=== PATIENT | female | born 2000 | race African-American/Black ===

== ENCOUNTER 2018-08-30 22:19 | Emergency (ER) | payer MEDICAID ==
[~2018-08-30] VITALS: Ht 157.5 cm; Wt 107.7 kg
[2018-08-30 22:25] VITALS: Ht 157.5 cm; Wt 107.7 kg
[2018-08-31] MEDS ORDERED: KETOROLAC 60 MG INJ IM STA (01:16)
[2018-08-31] MEDS ORDERED: FLUCONAZOLE 150 MG TAB PO ONE (02:00)
[2018-08-31] MEDS ORDERED: CEPH-443 PO (02:48)
[2018-08-31 03:21] VITALS: BP 114/68; PULSE 58; RESP 18
--- NOTE | 2018-08-31 17:49 | ERD ---
ER Documentation Chief Complaint Chief Complaint BREAST PAIN, LOWER BACK PAIN X'S 2 MONTHS HPI History of Present Illness: 18-year-old female who denies a past medical history coming in today with complaint of bilateral breast pain, and lower back pain is been present for 2 months. Patient also reports vaginal itching. Denies abdominal pain, nausea, vomiting, diarrhea, constipation. Patient denies urinary symptoms. At home pharmacological/nonpharmacological treatment for symptoms: Denies Denies social concerns; Denies recent foreign travel ROS All systems reviewed and are negative except as per history of present illness. Medications Home Meds Active Scripts Cephalexin* (Keflex*) 500 Mg Capsule, 500 MG PO BID for 7 Days, CAP Prov:ANDRY GARLAND 08/31/18 Allergies Allergies: Coded Allergies: aripiprazole (Verified Allergy, Unknown, 08/30/18) haloperidol (Verified Allergy, Unknown, 08/30/18) PMhx/Soc Medical and Surgical Hx: pt denies Medical Hx, pt denies Surgical Hx Hx Alcohol Use: No Hx Substance Use: No Hx Tobacco Use: No FmHx Family History: diabetes, coronary disease Physical Exam Vitals Vital Signs Date Temp Pulse Resp B/P (MAP) Pulse Ox O2 O2 Flow FiO2 Time Delivery Rate 08/31/18 98.1 58 18 114/68 98 Room Air 03:21 (83) 08/30/18 97.0 67 18 123/70 96 22:25 (87) Physical Exam Const: No acute distress Head: Atraumatic Eyes: Normal Conjunctiva ENT: Normal External Ears, Nose and Mouth. Neck: Full range of motion. No meningismus. Resp: Clear to auscultation bilaterally Cardio: Regular rate and rhythm, no murmurs Abd: Soft, non tender, non distended. Normal bowel sounds. Obese. Skin: No petechiae or rashes Back: No midline or flank tenderness, no CVA tenderness Ext: No cyanosis, or edema Neur: Awake and alert Psych: Normal Mood and Affect Breast: Dense breasts noted, no signs of mass or skin changes. Vaginal exam deferred, patient did self swab for wet prep Results 24 hrs Laboratory Tests Test 08/31/18 02:15 08/31/18 02:19 Urine Color YELLOW Urine Clarity CLOUDY Urine pH 6.0 Urine Specific [place] 1.026 Urine Ketones NEGATIVE mg/dL Urine Nitrite NEGATIVE mg/dL Urine Bilirubin NEGATIVE mg/dL Urine Urobilinogen NEGATIVE mg/dL Urine Leukocyte Esterase 3+ Edward/ul Urine Microscopic RBC 54 /HPF Urine Microscopic WBC 105 /HPF Urine Squamous Epithelial Cells FEW /HPF Urine Bacteria FEW /HPF Urine Mucus FEW /HPF Urine Hemoglobin 1+ mg/dL Urine Glucose NEGATIVE mg/dL Urine Total Protein NEGATIVE mg/dl POC Beta HCG, Qualitative NEGATIVE Current Medications Medications Dose Sig/Omaira Start Time Status Last (Trade) Ordered Route PRN Stop Time Admin Dose Reason Admin Ketorolac 60 mg ONCE STAT 08/31/18 DC 08/31/18 Tromethamine IM 01:16 02:29 (Toradol) 08/31/18 01:18 Fluconazole 150 mg ONCE ONCE 08/31/18 DC 08/31/18 (Diflucan) PO 02:00 02:35 08/31/18 02:01 Procedures/MDM ED course includes a thorough examination and history. Medications: Ketorolac for bilateral lower back pain, Diflucan for prophylactic vaginal candidiasis Imaging: Labs: Urogenital wet mount, urinalysis Low suspicion for life-threatening medical emergency. Low suspicion for acute abdominal emergency. Low suspicion for infectious process that requires IV/IM antibiotics. Low back pain is likely consistent with obesity causing lumbar strain. Otherwise healthy patient presenting with constellation of symptoms likely representing uncomplicated vaginal itching, fibrocystic breast, urinary tract infectioN as characterized by history, physical exam findings, lab findings. Urogenital wet mount negative.Urinalysis positive for 3+ leukocyte Estrace, 54 RBCs, 105 WBCs, few bacteria, 1+ hemoglobin. Findings consistent with urinary tract infection. Patient reassessment: Patient hemodynamically stable. No respiratory distress, otherwise relatively well appearing and nontoxic. Disposition given. Patient educated on diagnoses, prescriptions, follow-up care, return precautions. Strict return precautions given for worsening condition; questions answered discharge. Disposition for discharge with followup in 2 days with PCP/clinic. Departure Diagnosis: Primary Impression: Vagina itching Additional Impressions: Fibrocystic breast Laterality: unspecified laterality Qualified Codes: N60.19 - Diffuse cystic mastopathy of unspecified breast UTI (urinary tract infection) Urinary tract infection type: site unspecified Hematuria presence: with hematuria Qualified Codes: N39.0 - Urinary tract infection, site not specified; R31.9 - Hematuria, unspecified Condition: Stable Patient Instructions: Understanding Urinary Tract Infections (UTIs), Fibrocystic Breast Disease, Presumed Referrals: [facility] YOU HAVE RECEIVED A MEDICAL SCREENING EXAM AND THE RESULTS INDICATE THAT YOU DO NOT HAVE A CONDITION THAT REQUIRES URGENT TREATMENT IN THE EMERGENCY DEPARTMENT. FURTHER EVALUATION AND TREATMENT OF YOUR CONDITION CAN WAIT UNTIL YOU ARE SEEN IN YOUR DOCTORS OFFICE WITHIN THE NEXT 1-2 DAYS. IT IS YOUR RESPONSIBILITY TO MAKE AN APPOINTMENT FOR FOLOW-UP CARE. IF YOU HAVE A PRIMARY DOCTOR --you should call your primary doctor and schedule an appointment IF YOU DO NOT HAVE A PRIMARY DOCTOR YOU CAN CALL OUR PHYSICIAN REFERRAL HOTLINE AT IF YOU CAN NOT AFFORD TO SEE A PHYSICIAN YOU CAN CHOSE FROM THE FOLLOWING [facility] [address] [facility]. [facility] [address] [facility]. [facility] [address] [facility] [address] [facility] [address] [facility]. [facility] [address] [facility]. [facility] YOU HAVE RECEIVED A MEDICAL SCREENING EXAM AND THE RESULTS INDICATE THAT YOU DO NOT HAVE A CONDITION THAT REQUIRES URGENT TREATMENT IN THE EMERGENCY DEPARTMENT. FURTHER EVALUATION AND TREATMENT OF YOUR CONDITION CAN WAIT UNTIL YOU ARE SEEN IN YOUR DOCTORS OFFICE WITHIN THE NEXT 1-2 DAYS. IT IS YOUR RESPONSIBILITY TO MAKE AN APPOINTMENT FOR FOLOW-UP CARE. IF YOU HAVE A PRIMARY DOCTOR --you should call your primary doctor and schedule and appointment IF YOU DO NOT HAVE A PRIMARY DOCTOR YOU CAN CALL OUR PHYSICIAN REFERRAL HOTLINE AT . IF YOU CAN NOT AFFORD TO SEE A PHYSICIAN YOU CAN CHOSE FROM THE FOLLOWING [facility] INSTITUTIONS: [facility] [address] [place] [address] [facility] [address] [place] [address] [facility] [place] [address] [place] [address] Additional Instructions: Thank you very much for allowing us to participate in your care. Your health and safety is our top priority at [facility]. It is important to read all discharge instructions and education provided in your discharge packet. Call your primary care doctor TOMORROW for an appointment during the next 2-4 days and bring all the information and medications prescribed. Have prescriptions filled and follow precisely the directions on the label. If the symptoms get worse and your provider is unavailable, return to the Emergency Department immediately. ORIANA MARTINES NP Aug 31, 2018 17:49
== END 2018-08-31 03:23 | disposition home or self-care (01) ==
LOC: FTE 22:19
DX: N60.19 Diffuse cystic mastopathy of unspecified breast (principal); N89.8 Other specified noninflammatory disorders of vagina; N39.0 Urinary tract infection, site not specified
CPT/HCPCS: 81001; 81025; 87210; 96372; J1885; Z7502; Z7610

== ENCOUNTER 2018-09-14 00:15 | Emergency (ER) | payer MEDICAID ==
[~2018-09-14] VITALS: Ht 156.2 cm; Wt 110.2 kg
[~2018-09-14 00:15] MED LIST: CEPH-443 PO
[2018-09-14 00:26] VITALS: Ht 156.2 cm; Wt 110.2 kg
[2018-09-14] MEDS ORDERED: RANITIDINE 150 MG TAB PO ONE (02:00)
[2018-09-14] MEDS ORDERED: RANI150T35 PO (02:27)
[2018-09-14 02:41] VITALS: BP 132/78; PULSE 84; RESP 16
--- NOTE | 2018-09-14 04:10 | ERD ---
ER Documentation Chief Complaint Chief Complaint low back pain w/diffuse ab pain x 2 days;wants to know if she's HPI 18-year-old female with no significant past medical history presents emergency department complaining of intermittent midepigastric pain which is mild in severity. She also states she had intercourse 4 days ago and she is concerned about and is requesting urine test. She denies any vaginal bleeding, vaginal discharge, fevers, chills, lower abdominal pain, or other symptoms at this time. ROS All systems reviewed and are negative except as per history of present illness. Medications Home Meds Active Scripts Ranitidine Hcl* (Zantac*) 150 Mg Tablet, 150 MG PO BID PRN for EPIGASTRIC PAIN, #30 TAB Prov:ANDRY ÁLVAREZ PA-C 09/14/18 Cephalexin* (Keflex*) 500 Mg Capsule, 500 MG PO BID for 7 Days, CAP Prov:ANDRY GARLAND 08/31/18 Allergies Allergies: Coded Allergies: aripiprazole (Verified Allergy, Unknown, 08/30/18) haloperidol (Verified Allergy, Unknown, 08/30/18) PMhx/Soc Medical and Surgical Hx: pt denies Medical Hx Hx Alcohol Use: No Hx Substance Use: No Hx Tobacco Use: No FmHx Family History: No diabetes Physical Exam Vitals Vital Signs Date Temp Pulse Resp B/P (MAP) Pulse Ox O2 O2 Flow FiO2 Time Delivery Rate 09/14/18 97.0 84 16 132/78 99 Room Air 02:41 (96) 09/14/18 96.7 99 18 142/68 100 00:26 (92) Physical Exam Const: No acute distress Head: Atraumatic Eyes: Normal Conjunctiva ENT: Normal External Ears, Nose and Mouth. Neck: Full range of motion. No meningismus. Resp: Clear to auscultation bilaterally Cardio: Regular rate and rhythm, no murmurs Abd: Soft, mild tenderness palpation of the midepigastrium, negative McBurney's point tenderness, negative Portillo sign, no rebound tenderness or guarding, non distended. Normal bowel sounds Skin: No petechiae or rashes Back: No midline or flank tenderness Ext: No cyanosis, or edema Neur: Awake and alert Psych: Normal Mood and Affect Results 24 hrs Laboratory Tests Test 09/14/18 02:24 POC Beta HCG, Qualitative NEGATIVE Current Medications Medications Dose Sig/Omaira Start Time Status Last (Trade) Ordered Route PRN Stop Time Admin Dose Reason Admin Ranitidine 150 mg ONCE ONCE 09/14/18 DC 09/14/18 HCl PO 02:00 02:35 (Zantac) 09/14/18 02:01 Procedures/MDM 18-year-old female presenting with signs and symptoms most consistent with GERD. Low suspicion for acute surgical abdomen. Low suspicion for sepsis or other emergencies. Urine was negative. Patient will be discharged home in stable condition with prescriptions to treat her symptoms as an outpatient. She was advised to return to the department immediately for any new or worsening or concerning symptoms. She understands and agrees with plan. Departure Diagnosis: Primary Impression: Epigastric pain Condition: Fair Patient Instructions: Gerd (Adult) Referrals: [facility] YOU HAVE RECEIVED A MEDICAL SCREENING EXAM AND THE RESULTS INDICATE THAT YOU DO NOT HAVE A CONDITION THAT REQUIRES URGENT TREATMENT IN THE EMERGENCY DEPARTMENT. FURTHER EVALUATION AND TREATMENT OF YOUR CONDITION CAN WAIT UNTIL YOU ARE SEEN IN YOUR DOCTORS OFFICE WITHIN THE NEXT 1-2 DAYS. IT IS YOUR RESPONSIBILITY TO MAKE AN APPOINTMENT FOR FOLOW-UP CARE. IF YOU HAVE A PRIMARY DOCTOR --you should call your primary doctor and schedule an appointment IF YOU DO NOT HAVE A PRIMARY DOCTOR YOU CAN CALL OUR PHYSICIAN REFERRAL HOTLINE AT IF YOU CAN NOT AFFORD TO SEE A PHYSICIAN YOU CAN CHOSE FROM THE FOLLOWING [facility] [address] [facility] [facility] [address] [facility]. [facility] [address] [facility] [address] [facility] [facility]. [facility] [address] [facility]. [facility]. [address] Additional Instructions: Call your primary care doctor TOMORROW for an appointment during the next 1-2 days.See the doctor sooner or return here if your condition worsens before your appointment time. ANDRY ÁLVAREZ PA-C Sep 14, 2018 04:10
== END 2018-09-14 02:41 | disposition home or self-care (01) ==
LOC: FTE 00:15
DX: R10.13 Epigastric pain (principal)
CPT/HCPCS: 81025; Z7502; Z7610; 99282

== ENCOUNTER 2018-09-17 00:21 | Emergency (ER) | payer MEDICAID ==
[~2018-09-17] VITALS: Ht 154.9 cm; Wt 110.4 kg
[~2018-09-17 00:21] MED LIST changes: +RANI150T35 PO
[2018-09-17 00:26] VITALS: Ht 154.9 cm; Wt 110.4 kg
--- NOTE | 2018-09-17 01:04 | ERD ---
ER Documentation Chief Complaint Chief Complaint states abd/back pain after taking prescribed med for stomach HPI This is a 18-year-old female presents emergency department with complaints of back pain. Stated that she was on Keflex for UTI 2 weeks ago, had an unprotected sex couple of days ago, took her Keflex more than twice a day in the last couple of days. LMP: Unknown. G0, . Denies headache, head injury, loss of consciousness, dizziness, neck pain, neck stiffness, throat pain, difficulty swallowing, difficulty breathing lying flat, shoulder pain, chest pain, back pain, abdominal pain, nausea, vomiting, constipation, diarrhea, urinary symptoms, or possibility being p regnant, loss of bowel and bladder control, trauma, injury, falls, difficulty walking due to pain, numbness or tingling sensation, calf pain, recent travel, recent major surgery in the last 3 weeks, calf pain, recent long travel, recent exposure to any illness, recent antibiotic use in the last 3 months, fever, chills, seizures. Past medical history: Denies. Surgical history: Denies. Social: Denies smoking, use of alcoholic beverages, use of illegal drugs. ROS All systems reviewed and are negative except as per history of present illness. Medications Home Meds Active Scripts Ondansetron Hcl* (Zofran*) 4 Mg Tablet, 4 MG PO Q8H PRN for NAUSEA AND/OR VOMITING, #30 TAB Prov:ERIKA ERAZO F 09/17/18 Cyclobenzaprine Hcl* (Cyclobenzaprine Hcl*) 10 Mg Tablet, 10 MG PO TID PRN for MUSCLE SPASMS, #15 TAB Prov:PASILAERIKA GOMEZ F 09/17/18 Ibuprofen* (Motrin*) 800 Mg Tab, 800 MG PO Q6H PRN for PAIN AND OR ELEVATED TEMP, #30 TAB Prov:PASILABANASPENAR F 09/17/18 Ranitidine Hcl* (Zantac*) 150 Mg Tablet, 150 MG PO BID PRN for EPIGASTRIC PAIN, #30 TAB Prov:ANDRY ÁLVAREZ PA-C 09/14/18 Cephalexin* (Keflex*) 500 Mg Capsule, 500 MG PO BID for 7 Days, CAP Prov:ANDRY GARLAND 08/31/18 Allergies Allergies: Coded Allergies: aripiprazole (Verified Allergy, Unknown, 08/30/18) haloperidol (Verified Allergy, Unknown, 08/30/18) PMhx/Soc Medical and Surgical Hx: pt denies Medical Hx, pt denies Surgical Hx History of Surgery: No Anesthesia Reaction: No Hx Neurological Disorder: No Hx Respiratory Disorders: No Hx Cardiac Disorders: No Hx Psychiatric Problems: No Hx Miscellaneous Medical Probl: No Hx Alcohol Use: No Hx Substance Use: No Hx Tobacco Use: No Smoking Status: Never smoker Physical Exam Vitals Vital Signs Date Temp Pulse Resp B/P (MAP) Pulse Ox O2 O2 Flow FiO2 Time Delivery Rate 09/17/18 98.3 72 20 131/80 99 Room Air 03:11 (97) 09/17/18 97.8 78 18 133/82 97 00:26 (99) Physical Exam Const: No acute distress Head: Atraumatic Eyes: Normal Conjunctiva. Color appears normal for ethnicity. ENT: Normal External Ears, Nose and Mouth. Neck: Full range of motion. No meningismus. Resp: Clear to auscultation bilaterally Cardio: Regular rate and rhythm, no murmurs Abd: Soft, non tender, non distended. Normal bowel sounds. Negative Portillo sign. Negative Braman sign (heel jar test). Negative psoas sign. Negative Rovsing sign. Able to jump 10 times without developing lower abdominal pain. No CVA tenderness. Ambulatory with steady gait and without pain to abdomen. Skin: No petechiae or rashes. Color appears normal for ethnicity. No skin tenting. No signs of severe dehydration. Back: No midline or flank tenderness. No CVA tenderness. No saddle anesthesia. Ext: No cyanosis, or edema. Bilateral lower extremities are unremarkable. No neurovascular deficits. Neur: Awake and alert. No neurological deficits. Psych: Normal Mood and Affect Results 24 hrs Laboratory Tests Test 09/17/18 01:43 Urine Color YELLOW Urine Clarity CLEAR Urine pH 5.0 Urine Specific [place] 1.024 Urine Ketones 1+ mg/dL Urine Nitrite NEGATIVE mg/dL Urine Bilirubin NEGATIVE mg/dL Urine Urobilinogen NEGATIVE mg/dL Urine Leukocyte Esterase NEGATIVE Edward/ul Urine Hemoglobin NEGATIVE mg/dL Urine Glucose NEGATIVE mg/dL Urine Total Protein NEGATIVE mg/dl Urine Test NEGATIVE Current Medications Medications Dose Sig/Omaira Start Time Status Last (Trade) Ordered Route PRN Stop Time Admin Dose Reason Admin Ketorolac 30 mg ONCE STAT 09/17/18 DC 09/17/18 Tromethamine IM 02:05 02:32 (Toradol) 09/17/18 02:06 10 mg ONCE ONCE 09/17/18 DC 09/17/18 Cyclobenzapri PO 02:30 02:39 ne HCl 09/17/18 02:31 (Flexeril) Procedures/MDM Diagnostic tests:I offered blood works and diagnostic imaging but strongly refused. Stated that she only need her urine to be checked for UTI. hCG urine: Negative. Urinalysis: Reviewed. Culture urine: Sent. Treatment: Toradol IM. Flexeril. Re-evaluation: Denies chest pain, back pain, abdominal pain, epigastric pain, vaginal bleeding. Negative Portillo sign. Negative Brad sign (heel jar test). Negative psoas sign. Negative Rovsing sign. No CVA tenderness. Able to jump 10 times without developing lower abdominal pain. Ambulatory with steady gait without pain to abdomen. Stated this feels much better at time and that she is ready to go home. Stated that she is comfortable to go home. Differential diagnosis I have low suspicion for pancreatitis, cholecystitis, diverticulitis, bowel obstruction, appendicitis, ruptured appendicitis, nephrolithiasis, pyelonephritis, obstructing kidney stones, septic stone. Final diagnosis: Abdominal pain. Prescription: Motrin. Zofran. Flexeril. Follow-up with PCP in the next 24-48 hours. Come back here in the emergency department for any new symptoms or any worsening symptoms. All questions and concerns were answered. Patient and family members verbalized understanding and agreed with plan of care. Hemodynamically stable on discharge. Departure Diagnosis: Primary Impression: Back pain Additional Impression: Muscle spasm Condition: Stable Additional Instructions: Follow-up with PCP in the next 24-48 hours. Come back here in the emergency department for any new symptoms or any worsening symptoms. ERIKA ERAZO Sep 17, 2018 01:04
[2018-09-17] MEDS ORDERED: IBUP800T48 PO (02:04)
[2018-09-17] MEDS ORDERED: CYCL10TA7 PO (02:04)
[2018-09-17] MEDS ORDERED: ONDA4TAB8 PO (02:05)
[2018-09-17] MEDS ORDERED: KETOROLAC 30 MG INJ IM STA (02:05)
[2018-09-17] MEDS ORDERED: CYCLOBENZAPRINE 10 MG TAB PO ONE (02:30)
[2018-09-17 03:11] VITALS: BP 131/80; PULSE 72; RESP 20
== END 2018-09-17 03:11 | disposition home or self-care (01) ==
LOC: FTE 00:21
DX: M54.9 Dorsalgia, unspecified (principal); M62.838 Other muscle spasm
CPT/HCPCS: 81003; 84703; 87086; 96372; J1885; Z7502; Z7610

== ENCOUNTER 2018-09-27 01:53 | Emergency (ER) | payer MEDICAID ==
[~2018-09-27] VITALS: Ht 157.5 cm; Wt 112.8 kg
[~2018-09-27 01:53] MED LIST changes: +CYCL10TA7 PO; +IBUP800T48 PO; +ONDA4TAB8 PO
[2018-09-27 01:56] VITALS: BP 126/80; PULSE 66; RESP 18; Ht 157.5 cm; Wt 112.8 kg
--- NOTE | 2018-09-27 02:14 | ERD ---
ER Documentation Chief Complaint Chief Complaint ST X'S 2 DAYS HPI Patient is a 18 years old female presenting to the clinic with sore throat X 2 days. Patient denies all other review of system. She denies taking any [id number] medication. Patient denies fever, chills, night sweats, chest pain, shortness of breath, cough, sputum production, coryza, sinus pressure. ROS All systems reviewed and are negative except as per history of present illness. Medications Home Meds Active Scripts Amoxicillin/Potassium Clav (Amox-Clav 500-125 mg Tablet) 500-125 mg Tab, 1 TAB PO BID for 10 Days, TAB Prov:NILSON LUQUE PA-C 09/27/18 Ondansetron Hcl* (Zofran*) 4 Mg Tablet, 4 MG PO Q8H PRN for NAUSEA AND/OR VOMITING, #30 TAB Prov:CHARISILABANASPENAR F 09/17/18 Cyclobenzaprine Hcl* (Cyclobenzaprine Hcl*) 10 Mg Tablet, 10 MG PO TID PRN for MUSCLE SPASMS, #15 TAB Prov:CHARISILAERIKA GOMEZ F 09/17/18 Ibuprofen* (Motrin*) 800 Mg Tab, 800 MG PO Q6H PRN for PAIN AND OR ELEVATED TEMP, #30 TAB Prov:CHARISILAERIKA GOMEZ F 09/17/18 Ranitidine Hcl* (Zantac*) 150 Mg Tablet, 150 MG PO BID PRN for EPIGASTRIC PAIN, #30 TAB Prov:ANDRY ÁLVAREZ PA-C 09/14/18 Cephalexin* (Keflex*) 500 Mg Capsule, 500 MG PO BID for 7 Days, CAP Prov:ANDRY GARLAND 08/31/18 Allergies Allergies: Coded Allergies: aripiprazole (Verified Allergy, Unknown, 08/30/18) haloperidol (Verified Allergy, Unknown, 08/30/18) PMhx/Soc History of Surgery: No Anesthesia Reaction: No Hx Neurological Disorder: No Hx Respiratory Disorders: No Hx Cardiac Disorders: No Hx Psychiatric Problems: No Hx Miscellaneous Medical Probl: No Hx Alcohol Use: No Hx Substance Use: No Hx Tobacco Use: No Physical Exam Vitals Vital Signs Date Temp Pulse Resp B/P (MAP) Pulse Ox O2 O2 Flow FiO2 Time Delivery Rate 09/27/18 97.7 66 18 126/80 100 01:56 (95) Physical Exam Const: No acute distress Head: Atraumatic Eyes: Normal Conjunctiva ENT: Normal External Ears, Nose and Mouth. Mild bilateral tympanic membrane erythematous without discharge or perforation noted. Mild oropharyngeal erythema without exudate or lesion. Neck: Full range of motion. No meningismus. Resp: Clear to auscultation bilaterally Cardio: Regular rate and rhythm, no murmurs Neur: Awake and alert Psych: Normal Mood and Affect Procedures/MDM Patient was seen and evaluated for throat pain which is most likely pharyngitis without complication. Patient also presents with bilateral otitis media without complication. No further work-up is required for today's visit. Low suspicion for pneumonia or sepsis. Patient is stable ready for discharge. Follow-up with PCP. Patient will be discharged with Augmentin. Departure Diagnosis: Primary Impression: Sore throat Additional Impression: Otitis media Otitis media type: suppurative Chronicity: acute Laterality: bilateral Recurrence: non-recurrent Spontaneous tympanic membrane rupture: without spontaneous rupture Qualified Codes: H66.003 - Acute suppurative otitis media without spontaneous rupture of ear drum, bilateral Condition: Stable Patient Instructions: When You Have a Sore Throat, Otitis Media, Abx Tx (Adult) Referrals: [facility] Additional Instructions: Patient advised to return to the ED immediately for new or worsening symptoms. Patient advised to follow up with primary care provider in the next 24-48 hours. Patient verbalized understanding and agrees with treatment plan and course of action. If patient has no primary care they may follow up with [facility] + [address] [address] or [facility] [address] [place] [id number] or [facility] [address] [place] [address] NILSON LUQUE PA-C Sep 27, 2018 02:14
[2018-09-27] MEDS ORDERED: AMOX1TAB9 PO (02:15)
== END 2018-09-27 02:28 | disposition home or self-care (01) ==
LOC: FTE 01:53
DX: J02.9 Acute pharyngitis, unspecified (principal); H66.003 Acute suppurative otitis media without spontaneous rupture of ear drum, bilateral
CPT/HCPCS: 99283

== ENCOUNTER 2018-10-12 16:58 | Emergency (ER) | payer MEDICAID ==
[~2018-10-12] VITALS: Ht 154.9 cm; Wt 115.5 kg
[~2018-10-12 16:58] MED LIST changes: +AMOX1TAB9 PO
[2018-10-12 17:06] VITALS: BP 147/78; PULSE 80; RESP 17; Ht 154.9 cm; Wt 115.5 kg
[2018-10-12] MEDS ORDERED: ACET-141 PO (18:04)
[2018-10-12] MEDS ORDERED: CEPH500C PO (18:04)
[2018-10-12] MEDS ORDERED: IBUP-1561 PO (18:04)
--- NOTE | 2018-10-12 22:21 | ERD ---
ER Documentation Chief Complaint Chief Complaint SWELLING ON LOWER EXT X2 DAYS, NO INJURY HPI 18-year-old female with no significant past medical history presents for right ankle swelling and redness x2 days. She states that she had a bug bite. She currently states she has 6 out of 10 pain over the lateral side of her right ankle. Pain is described as a burning sensation, nonradiating. Pain is worse with movement. She denies fevers or chills. Denies chest pain or shortness of breath. No history of trauma. No prior similar symptoms. No other modifying factors noted, no treatments tried at home. ROS All systems reviewed and are negative except as per history of present illness. Medications Home Meds Active Scripts Ibuprofen* (Motrin*) 400 Mg Tab, 400 MG PO Q6H PRN for PAIN AND OR ELEVATED TEMP, #30 TAB Prov:DANIEL LINDA DO 10/12/18 Acetaminophen* (Acetaminophen*) 500 MG Extra Strength Tablet, 500 MG PO Q4H PRN for PAIN AND OR ELEVATED TEMP, #30 TAB Prov:DANIEL LINDA DO 10/12/18 Cephalexin* (Cephalexin*) 500 Mg Capsule, 500 MG PO Q8 for skin infection for 7 Days, #21 CAP Prov:DANIEL LINDA DO 10/12/18 Amoxicillin/Potassium Clav (Amox-Clav 500-125 mg Tablet) 500-125 mg Tab, 1 TAB PO BID for 10 Days, TAB Prov:NILSON LUQUE PA-C 09/27/18 Ondansetron Hcl* (Zofran*) 4 Mg Tablet, 4 MG PO Q8H PRN for NAUSEA AND/OR VOMITING, #30 TAB Prov:ERIKA ERAZO 09/17/18 Cyclobenzaprine Hcl* (Cyclobenzaprine Hcl*) 10 Mg Tablet, 10 MG PO TID PRN for MUSCLE SPASMS, #15 TAB Prov:ERIKA ERAZO 09/17/18 Ibuprofen* (Motrin*) 800 Mg Tab, 800 MG PO Q6H PRN for PAIN AND OR ELEVATED TEMP, #30 TAB Prov:ERIKA ERAZO 09/17/18 Ranitidine Hcl* (Zantac*) 150 Mg Tablet, 150 MG PO BID PRN for EPIGASTRIC PAIN, #30 TAB Prov:ANDRY ÁLVAREZ PA-C 09/14/18 Cephalexin* (Keflex*) 500 Mg Capsule, 500 MG PO BID for 7 Days, CAP Prov:ANDRY GARLAND 08/31/18 Allergies Allergies: Coded Allergies: aripiprazole (Verified Allergy, Unknown, 08/30/18) haloperidol (Verified Allergy, Unknown, 08/30/18) PMhx/Soc Medical and Surgical Hx: pt denies Medical Hx, pt denies Surgical Hx History of Surgery: No Anesthesia Reaction: No Hx Neurological Disorder: No Hx Respiratory Disorders: No Hx Cardiac Disorders: No Hx Psychiatric Problems: No Hx Miscellaneous Medical Probl: No Hx Alcohol Use: No Hx Substance Use: No Hx Tobacco Use: No FmHx Family History: No coronary disease Physical Exam Vitals Vital Signs Date Temp Pulse Resp B/P (MAP) Pulse Ox O2 O2 Flow FiO2 Time Delivery Rate 10/12/18 98.5 80 17 147/78 99 17:06 (101) Physical Exam Const: No acute distress Resp: Clear to auscultation bilaterally Cardio: Regular rate and rhythm, no murmurs, bilateral dorsalis pedis pulses intact and equal Abd: Soft, non tender, non distended. Normal bowel sounds Skin: Right ankle swelling and erythema noted over the lateral side, there is tenderness palpation of the lateral malleolar area, is also increased warmth noted Back: No midline or flank tenderness Ext: No cyanosis, or edema Neur: Awake and alert, bilateral lower extremity sensation intact Psych: Normal Mood and Affect Procedures/MDM Medical Decision Making: Differential diagnosis includes but not limited to allergic reaction, dermatitis, cellulitis, viral syndrome, fungal infection, erythrasma Patient appeared well on physical exam. No acute distress Physical examination consistent with cellulitis Low suspicion for deep space infection, Kg Kush symdrome, toxic epiderma necrolysis Prescription(s): Patient given prescription for supportive medication(s) and oral antibiotic for cellulitis Patient advised to follow up with PCP in 1-2 days. Patient advised to return to ED for new or worsening symptoms. Patient stable on discharge from the ED. Disclaimer: Inadvertent spelling and grammatical errors are likely due to EHR/dictation software use and do not reflect on the overall quality of patient care. Also, please note that the electronic time recorded on this note does not necessarily reflect the actual time of the patient encounter. Departure Diagnosis: Primary Impression: Cellulitis Site of cellulitis: extremity Site of cellulitis of extremity: lower extremity Laterality: right Qualified Codes: L03.115 - Cellulitis of right lower limb Condition: Fair Patient Instructions: Cellulitis Referrals: [facility] YOU HAVE RECEIVED A MEDICAL SCREENING EXAM AND THE RESULTS INDICATE THAT YOU DO NOT HAVE A CONDITION THAT REQUIRES URGENT TREATMENT IN THE EMERGENCY DEPARTMENT. FURTHER EVALUATION AND TREATMENT OF YOUR CONDITION CAN WAIT UNTIL YOU ARE SEEN IN YOUR DOCTORS OFFICE WITHIN THE NEXT 1-2 DAYS. IT IS YOUR RESPONSIBILITY TO MAKE AN APPOINTMENT FOR FOLOW-UP CARE. IF YOU HAVE A PRIMARY DOCTOR --you should call your primary doctor and schedule an appointment IF YOU DO NOT HAVE A PRIMARY DOCTOR YOU CAN CALL OUR PHYSICIAN REFERRAL HOTLINE AT IF YOU CAN NOT AFFORD TO SEE A PHYSICIAN YOU CAN CHOSE FROM THE FOLLOWING [facility] [address] [facility] [address] [facility] [address] [facility] [address] [facility]. [facility] [address] [facility]. [facility] [address] Additional Instructions: Call your primary care doctor TOMORROW for an appointment during the next 1-2 days.See the doctor sooner or return here if your condition worsens before your appointment time. DANIEL LINDA DO Oct 12, 2018 22:21
[2018-10-15] MEDS ORDERED: SULF1TAB31 PO (05:44)
[2018-10-15] MEDS ORDERED: IBUP800T48 PO (05:44)
== END 2018-10-12 18:05 | disposition home or self-care (01) ==
LOC: E/R 16:58
DX: L03.115 Cellulitis of right lower limb (principal)
CPT/HCPCS: 99283

== ENCOUNTER 2018-10-15 01:11 | Emergency (ER) | payer MEDICAID ==
[~2018-10-15] VITALS: Ht 154.9 cm; Wt 113.0 kg
[~2018-10-15 01:11] MED LIST changes: +ACET-141 PO; +CEPH500C PO; +IBUP-1561 PO; +SULF1TAB31 PO
[2018-10-15 01:12] VITALS: Ht 154.9 cm; Wt 113.0 kg
--- NOTE | 2018-10-15 02:45 | ERD ---
ER Documentation Chief Complaint Chief Complaint RT FOOT SWELLING, PT STATES ABX USED TO TREAT FOOT HAVE BEEN INEFFECTIVE HPI This is a 18-year-old female presented to emerge department with complaints of right foot swelling. Stated that she was here 2 days ago for the same reason and was prescribed antibiotics for cellulitis. LMP: Unknown. A0. Denies headache, head injury, loss of consciousness, dizziness, neck pain, neck stiffness, throat pain, difficulty swallowing, difficulty breathing lying flat, shoulder pain, chest pain, back pain, abdominal pain, nausea, vomiting, constipation, diarrhea, urinary symptoms, or possibility being , loss of bowel and bladder control, trauma, injury, falls, difficulty walking due to pain, numbness or tingling sensation, calf pain, recent travel, recent major surgery in the last 3 weeks, calf pain, recent long travel, recent exposure to any illness, recent antibiotic use in the last 3 months, fever, chills, seizures. Past medical history: Denies. Surgical history: Denies. Social: Denies smoking, use of alcoholic beverages, use of illegal drugs. ROS All systems reviewed and are negative except as per history of present illness. Medications Home Meds Active Scripts Ibuprofen* (Motrin*) 800 Mg Tab, 800 MG PO Q6H PRN for PAIN AND OR ELEVATED TEMP, #30 TAB Prov:ERIKA ERAZO 10/15/18 Sulfamethoxazole/Trimethoprim* (Bactrim Ds* Tablet) 1 Each Tablet, 1 TAB PO BID for 7 Days, #14 TAB Prov:ERIKA ERAZO 10/15/18 Ibuprofen* (Motrin*) 400 Mg Tab, 400 MG PO Q6H PRN for PAIN AND OR ELEVATED TEMP, #30 TAB Prov:DANIEL LINDA DO 10/12/18 Acetaminophen* (Acetaminophen*) 500 MG Extra Strength Tablet, 500 MG PO Q4H PRN for PAIN AND OR ELEVATED TEMP, #30 TAB Prov:DANIEL LINDA DO 10/12/18 Cephalexin* (Cephalexin*) 500 Mg Capsule, 500 MG PO Q8 for skin infection for 7 Days, #21 CAP Prov:DANIEL LINDA DO 10/12/18 Amoxicillin/Potassium Clav (Amox-Clav 500-125 mg Tablet) 500-125 mg Tab, 1 TAB PO BID for 10 Days, TAB Prov:NILSON LUQUE PA-C 09/27/18 Ondansetron Hcl* (Zofran*) 4 Mg Tablet, 4 MG PO Q8H PRN for NAUSEA AND/OR VOMITING, #30 TAB Prov:ERIKA ERAZO 09/17/18 Cyclobenzaprine Hcl* (Cyclobenzaprine Hcl*) 10 Mg Tablet, 10 MG PO TID PRN for MUSCLE SPASMS, #15 TAB Prov:ERIKA ERAZO 09/17/18 Ibuprofen* (Motrin*) 800 Mg Tab, 800 MG PO Q6H PRN for PAIN AND OR ELEVATED TEMP, #30 TAB Prov:ERIKA ERAZO 09/17/18 Ranitidine Hcl* (Zantac*) 150 Mg Tablet, 150 MG PO BID PRN for EPIGASTRIC PAIN, #30 TAB Prov:ANDRY ÁLVAREZ PA-C 09/14/18 Cephalexin* (Keflex*) 500 Mg Capsule, 500 MG PO BID for 7 Days, CAP Prov:ANDRY GARLAND 08/31/18 Allergies Allergies: Coded Allergies: aripiprazole (Verified Allergy, Unknown, 08/30/18) haloperidol (Verified Allergy, Unknown, 08/30/18) PMhx/Soc Medical and Surgical Hx: pt denies Medical Hx, pt denies Surgical Hx History of Surgery: No Anesthesia Reaction: No Hx Neurological Disorder: No Hx Respiratory Disorders: No Hx Cardiac Disorders: No Hx Psychiatric Problems: No Hx Miscellaneous Medical Probl: No Hx Alcohol Use: No Hx Substance Use: No Hx Tobacco Use: No Smoking Status: Never smoker Physical Exam Vitals Physical Exam Const: No acute distress Head: Atraumatic Eyes: Normal Conjunctiva ENT: Normal External Ears, Nose and Mouth. Neck: Full range of motion. No meningismus. There is no jugular vein distention. Resp: Clear to auscultation bilaterally. No crackles. Cardio: Regular rate and rhythm, no murmurs Abd: Soft, non tender, non distended. Normal bowel sounds Skin: No petechiae or rashes Back: No midline or flank tenderness Ext: No cyanosis, or edema. Right foot: No obvious deformity. Mild redness. Mild swelling. Skin is not warm to touch. Right pedal pulse within normal l imits. Right ankle: Mild swelling. No obvious deformity. Skin is not warm to touch. Skin is not red. Good and full range of motion. Right tibia and fibula: No obvious deformity. Skin is not warm to touch. No swelling. No right calf tenderness. Right knee: Unremarkable. Bilateral hips are stable and unremarkable. Left lower extremity is unremarkable. Ambulatory with steady gait. Capillary feels to bilateral lower extremities are less than 2 seconds. No neurovascular deficit. Neur: Awake and alert. No neurological deficits. Psych: Normal Mood and Affect Procedures/MDM Diagnostic tests: POC urine : X-ray bilateral foot/ankles: No acute osseous abnormality. Treatment: Refused. Re-evaluation: Denies pain. No neurovascular deficit. Ambulatory with steady gait. Stated that she feels much better this time and that she is ready to go home. Differential diagnosis I have low suspicion for sepsis, osteomyelitis, septic joint, Lisfranc fracture, displaced fracture. Final diagnosis: Swelling. Cellulitis. Patient is insisting antibiotics. Prescription: Motrin. Bactrim. Follow-up with PCP in the next 24-48 hours. Come back here in the emergency department for any new symptoms or any worsening symptoms. All questions and concerns were answered. Patient and family members verbalized understanding and agreed with plan of care. Hemodynamically stable on discharge. Departure Diagnosis: Primary Impression: Foot pain Condition: Stable Additional Instructions: Follow-up with PCP in the next 24-48 hours. Come back here in the emergency department for any new symptoms or any worsening symptoms. ERIKA ERAZO Oct 15, 2018 02:45
[2018-10-15 06:40] VITALS: BP 112/71; PULSE 66; RESP 16
== END 2018-10-15 06:42 | disposition home or self-care (01) ==
LOC: FTE 01:11
DX: M79.671 Pain in right foot (principal)
CPT/HCPCS: 73600; 73630; Z7502

== ENCOUNTER 2018-11-24 23:37 | Emergency (ER) | payer MEDICAID, OTHER ==
[~2018-11-24] VITALS: Ht 154.9 cm; Wt 111.5 kg
[~2018-11-24 23:37] MED LIST changes: +IBUP-1542 PO
[2018-11-24 23:40] VITALS: BP 117/75; PULSE 71; RESP 19; Ht 154.9 cm; Wt 111.5 kg
[2018-11-25] MEDS ORDERED: IBUPROFEN 600 MG TAB PO ONE (01:00)
== END 2018-11-25 02:07 | disposition home or self-care (01) ==
LOC: FTE 23:37
DX: S02.2XXA Fracture of nasal bones, initial encounter for closed fracture (principal); S00.12XA Contusion of left eyelid and periocular area, initial encounter; Y04.2XXA Assault by strike against or bumped into by another person, initial encounter
CPT/HCPCS: 70480; 87591; Z7502; Z7610

== ENCOUNTER 2018-12-04 02:19 | Emergency (ER) | payer OTHER ==
[~2018-12-04] VITALS: Ht 154.9 cm; Wt 113.9 kg
[~2018-12-04 02:19] MED LIST changes: +RANI-535 PO; -RANI150T35 PO
[2018-12-04 02:22] VITALS: BP 129/74; PULSE 88; RESP 16; Ht 154.9 cm; Wt 113.9 kg
[2018-12-04] MEDS ORDERED: LIDOCAINE/MYLANTA 40 ML BTL PO ONE (03:00)
== END 2018-12-04 04:28 | disposition home or self-care (01) ==
LOC: FTE 02:19
DX: R10.10 Upper abdominal pain, unspecified (principal); M54.5 Low back pain; R19.7 Diarrhea, unspecified
CPT/HCPCS: 81003; 81025; Z7502; Z7610; 99282